=== PATIENT | female | born 2000 | race Caucasian/White ===

== ENCOUNTER 2023-05-15 05:22 | Emergency (ER) | payer MEDICAID, SELFPAY ==
[2023-05-15 05:24] VITALS: BP 131/86; PULSE 95; RESP 18; TEMP 36.8; O2SAT 98; BMI 24.7
[2023-05-15] MEDS: 0.9% Normal Saline 1,000 ML 999 ML IV (06:00)
[2023-05-15 06:02] LABS: Absolute Lymphocyte Count 2.36 X10^3/uL (0.83-4.51); Absolute Neutrophil Count 9.9 X10^3/uL (2.0-7.7); Basophil# 0.05 X10^3/uL; Basophil% 0.4 % (0-1); Eosinophil# 0.08 X10^3/uL; Eosinophils% 0.6 % (0-5); Hematocrit 37.4 % (37-47); Hemoglobin 12.7 g/dL (12.0-15.0); Lymphocyte # 2.36 X10^3/ul (0.83-4.51); Mean Corpuscular Hgb 31.1 pg (27.0-32.0); Mean Corpuscular Volume 91.7 fL (81-99); Mean Platelet Vol. 10.4 fl (6.2-12.0); Monocyte# 0.69 X10^3/uL; Monocyte% 5.3 % (0-10); NRBC Flagged by Analyzer 0 % (0-5); Neutrophil # 9.86 X10^3/uL (2.7-7.7); Neutrophil % 75.3 % (47-70); Platelet Count 251 K/mm3 (150-450); RBC Distribution Width CV 11.5 % (11.6-14.6); RBC Distribution Width SD 39.1 fl (35.1-43.9); Red Blood Count 4.08 M/mm3 (4.2-5.4); White Blood Count 13.1 K/mm3 (4.4-11.0)
--- NOTE | 2023-05-15 06:05 | EDS_ITS ---
HPI HPI - Female History of Present Illness Chief Complaint: Vag Bld, Preg Informant: patient and spouse/S.O. Narrative Narrative: Patient is a G1, P0 female who is approximately 8 to 11 weeks. On May 08 she had an ultrasound that showed a yolk sac but no heartbeat. Her beta hCG value at that time was 26,500. Her blood type is a positive. The patient states she was informed that her ultrasound is consistent with a spontaneous miscarriage. She states yesterday feeling with vaginal bleeding and developed crampy abdominal pain and back pain and passage of large clots. Patient states the pain got so bad at home that she cannot take it any longer and therefore comes to the hospital for evaluation. However upon reaching the ER she states her pain has spontaneously improved. She denies any history of bleeding disor kelly or blood thinner use and states that there is been no lightheadedness or syncopal event PFSH PFSH Medical History no medical history no medical history Home Medications ondansetron 4 mg disintegrating tablet 4 mg PO TID PRN nausea and vomiting #21 tabs 05/15/23 [Rx Last Taken Unknown] oxycodone-acetaminophen 5 mg-325 mg tablet (Percocet) 1 tab PO Q6H PRN pain 3 da ys #12 tabs 05/15/23 [Rx Last Taken Unknown] Allergy/AdvReac Type Severity Reaction Status Date / Time No Known Allergies Allergy Verified 05/15/23 05:31 Social History Smoking Status: Never smoker [facility] ED Constitutional Constitutional ED: Denies chills or fever(s) Eyes Eyes: Denies change in vision ENT ENT ED: Denies sore throat Cardiovascular Cardiovascular: Denies chest pain, palpitations or racing heartbeat Respiratory/Chest Respiratory/Chest: Denies cough or dyspnea Gastrointestinal Gastrointestinal: Reports abdominal pain and nausea; Denies diarrhea or vomiting Genitourinary Genitourinary ED: Reports other Details: Positive vaginal bleeding ; Denies dysuria Musculoskeletal Musculoskeletal: Reports other Details: Positive low back pain Integumentary Denies rash Neurologic Neurologic: Denies headache(s) Hematologic/Lymphatic Hematologic/Lymphatic: Denies easy bleeding or easy bruising EXAM Physical Exam Const Vital Signs: 05/15/23 05:24 Temperature 98.3 F Temperature Source Temporal Pulse Rate 95 Respiratory Rate 18 Blood Pressure 131/86 H Blood Pressure Mean 101 Pulse Ox 98 Oxygen Delivery Method Room Air Positive well nourished and well developed General Appearance ED: well developed; Negative for pallor HEENT HEENT Narrative: Cephalic atraumatic Eyes PERRL and EOMs intact bilaterally General Eye ED: Negative for pale conjunctiva Neck supple Resp normal respiratory effort and clear to auscultation bilaterally Cardio regular rate and regular rhythm Rate: other Other Details: Radial and carotid pulses are equal and symmetric GI normal to inspection, nondistended, normoactive bowel sounds, soft to palpation, non-tender and non-distended GI Narrative: No voluntary guarding or rigidity. No pulsatile mass or fluid wave Auscultation: normoactive bowel sounds Palpation: soft Narrative: External genitalia is normal. Speculum exam displays a clot within the vaginal vault. There is trace amount of bleeding around this. Blood is dark red in color consistent with old blood Extremity normal to inspection Neuro oriented x3, CN's II-XII intact bilaterally and no sensory deficits noted Sensorium / Orientation: alert Motor Exam: strength 5/5 throughout Psych mental status grossly normal Skin no rashes or lesions noted General Skin Exam: Negative for pallor MDM MDM MDM Narrative Medical decision making narrative: Patient presented to the ER with stable vitals but as differential diagnosis includes spontaneous miscarriage versus threatened versus acute blood loss anemia I did elect to perform basic laboratory studies. H&H is stable at 13 and 37. There is no need to repeat her blood type as records reviewed from the outside source confirm she is a positive. Her ultrasound was reviewed as well and I do not feel need to repeat one at this time as she has one scheduled for Thursday. Her quantitative hCG value dropped from 26,500 to approximately 10,500. With her vaginal bleeding and pain this is consistent with a spontaneous miscarriage. As the patient is not requiring a blood transfusion and she is not showing changes concerning for retained products of conception with infection she is otherwise safe for discharge. History & Record Review Discussion w/independent historian: Patient and Significant other Lab Data Attestation: I reviewed the patient's lab results. Labs: Laboratory Results - last 24 hr 05/15/23 05:40 WBC 13.1 H RBC 4.08 L Hgb 12.7 Hct 37.4 MCV 91.7 MCH 31.1 MCHC 34.0 RDW Std Deviation 39.1 RDW Coeff of Antione 11.5 L Plt Count 251 MPV 10.4 Immature Gran % (Auto) 0.400 Neut % (Auto) 75.3 H Lymph % (Auto) 18.0 L [place] % (Auto) 5.3 Eos % (Auto) 0.6 Baso % (Auto) 0.4 Absolute Neuts (auto) 9.9 H Absolute Lymphs (auto) 2.36 Nucleated RBC % 0 Sodium 138 Potassium 3.9 Chloride 107 Carbon Dioxide 25.0 Anion Gap 6 BUN 7 Creatinine 0.65 Estim Creat Clear Calc 114.21 Est GFR (MDRD) Af Amer 149 Est GFR (MDRD) Non-Af 123 BUN/Creatinine Ratio 10.8 Glucose 108 H Calcium 9.1 HCG, Quant 24404 H Discharge Plan Triage Chief Complaint: Vag Bld, Preg ED Provider: Augusto Wilson Dx/Rx/DC Orders Clinical Impression: Spontaneous miscarriage Instructions: ED Miscarriage Spontaneous Prescriptions: New oxycodone-acetaminophen [Percocet] 5-325 mg tablet 1 tab PO Q6H PRN (Reason: pain) 3 Days Qty: 12 0RF ondansetron 4 mg tablet,disintegrating 4 mg PO TID PRN (Reason: nausea and vomiting) Qty: 21 0RF Primary Care Provider: Eula Dillard Referrals: Eula Dillard MD [Primary Care Provider] - Activity Restrictions/Additional Instructions: Your marker has dropped from 26,500-10,500 indicating you are going through a spontaneous miscarriage. If your pain worsens please take the prescribed medication as directed. Please get your repeat ultrasound on Thursday to confirm there are no retained products of conception and return to the ER should you have any further concerns Disposition Disposition: Home, Self Care
[2023-05-15 06:17] LABS: Anion Gap 6 (5-15); BUN 7 mg/dL (7-18); BUN/Creat Ratio 10.8 RATIO (10-20); Calcium,Total 9.1 mg/dL (8.5-10.1); Chloride 107 mmol/L (98-107); Creatinine, Serum 0.65 mg/dL (0.55-1.02); EST Glomerular Filtration Rate 123 mL/min (>60); Est Glom Filt Rate - Afr Amer 149 mL/min (>60); Estimated Creatinine Clearance 114.21 ml/min; Glucose 108 mg/dL (74-106); Potassium 3.9 mmol/L (3.5-5.1); Sodium Level 138 mmol/L (136-145)
[2023-05-15 06:35] LABS: hCG Titer Quant., Serum 10478 mIU/mL (1-3)
[2023-05-15 06:45] VITALS: PULSE 80; RESP 18; O2SAT 99
== END 2023-05-15 06:46 | disposition home or self-care (01) ==
PROVIDERS: Emergency Provider Emergency Medicine; PCP Obstetrics & Gynecology; Visit Provider Emergency Medicine
DX: O03.9 Complete or unspecified spontaneous abortion without complication (principal)
CPT/HCPCS: 80048; 84702; 85025; 96360; 99282; J7030; A4216

== ENCOUNTER 2025-07-20 18:20 | Inpatient (IN) | payer MEDICAID, SELFPAY ==
[2025-07-20] VITALS (33 sets, daily range): BP systolic 98–133; BP diastolic 54–79; PULSE 79–117; RESP 16–18; TEMP 36.1–36.9; O2SAT 96–100; BMI 32.3
--- NOTE | 2025-07-20 06:54 | OB.TRI.NOTE ---
HPI - General General Date of Admission: 07/20/25 Date of Service: 07/20/25 Chief Complaint: contraction HPI Narrative NGUYEN QUINONES, is a 24 F who presents contractions every 2-4 minutes. No LOF. No bleeding. 0.5 -1 cm. Maternal Data Information Final KRYSTYNA: 07/22/25 Gestational age: 39+5 PFSH PFSH Home Medications ?Medication ?Instructions ?Recorded ?Last Taken ?Type aspirin 81 mg tablet,delayed 81 mg PO DAILY 07/20/25 07/19/25 History release (Adult Aspirin Regimen) vitamins no.102-iron 90 cap PO 07/20/25 07/19/25 History mg-folate 1 mg-dha 200 mg capsule Allergy/AdvReac Type Severity Reaction Status Date / Time No Known Allergies Allergy Verified 07/20/25 02:43 Social History Smoking Status: Never smoker History 1 Elective abortions Hx Para 0 Spontaneous abortions Hx # Term Pregnancies Ectopic pregnancies Hx # Pregnancies Multiple births # of living children NST FHR Rate Baby A Baseline: 135 Variability:: Moderate Accelerations:: 15 x 15 Decelerations:: None NST Reactive:: Yes Uterine Activity:: q 2-4 Assessment & Plan (1) Irregular contractions: (2) 39 weeks gestation of : PLAN: Plan r/o labor
[2025-07-20] MEDS: LACTATED RINGERS 500 ML 999 ML IV (14:05)
[2025-07-20] MEDS: 0.9% Saline Lock 10 ML Syringe IV ×2 (15:50→18:54)
[2025-07-20] MEDS: DiphenhydrAMINE 50 MG/ML Syringe 25 MG IV (15:50)
--- NOTE | 2025-07-20 18:27 | PCM.HP.OB ---
HPI - General General Date of Admission: 07/20/25 Chief Complaint: contraction HPI Narrative NGUYEN QUINONES, is a 24 F at 39.5 weeks gestation who presents with contractions. Patient has been to L&D on two separate occasions and discharged home. Patient seen and evaluated at bedside due to variable decelerations. Maternal Data Information KRYSTYNA Calculator Estimated Delivery Date Method Current WG Current Estimate 07/22/25 Manual 39w 5d PFSH PFS Medical History (Updated 07/20/25 @ 18:30 by Vee Bustamante CNM) History of blood transfusion Home Medications ?Medication ?Instructions ?Recorded ?Last Taken ?Type aspirin 81 mg tablet,delayed 81 mg PO DAILY 07/20/25 07/19/25 History release (Adult Aspirin Regimen) vitamins no.102-iron 90 cap PO 07/20/25 07/19/25 History mg-folate 1 mg-dha 200 mg capsule Allergy/AdvReac Type Severity Reaction Status Date / Time No Known Allergies Allergy Verified 07/20/25 13:20 Surgical History (Updated 07/20/25 @ 13:47 by Yamileth Villaseñor) History of gynecologic surgery Social History Smoking Status: Never smoker History 1 Elective abortions Hx Para 0 Spontaneous abortions Hx # Term Pregnancies Ectopic pregnancies Hx # Pregnancies Multiple births # of living children NST FHR Rate Baby A Baseline: 140 Variability:: Moderate Accelerations:: 15 x 15 Decelerations:: Variable NST Reactive:: Yes FHR Category:: Category I Uterine Activity:: TOCO reading every 2-3 minutes ROS Eyes Eyes: Denies blurry vision, change in vision or spots in vision ENT HEENT: Denies dizziness or headache(s) Cardiovascular Cardiovascular: Denies abdominal pain, chest pain or dyspnea Respiratory/Chest Respiratory/Chest: Denies cough, dyspnea, shortness of breath at rest or shortness of breath with exertion Gastrointestinal Gastrointestinal: Denies abdominal pain, diarrhea or vomiting Genitourinary Genitourinary: Denies change in urinary stream, difficulty urinating or dysuria Musculoskeletal Musculoskeletal: Reports none Integumentary Integumentary: Denies rash Neurologic Neurologic: Denies dizziness, headache(s), memory loss or weakness Psychiatric Psychiatric: Reports none Vital Signs Vital Signs Vital Signs: 07/20/25 02:35 07/20/25 02:35 07/20/25 02:35 Temperature Temperature Source Temporal Pulse Rate 105 H Respiratory Rate Blood Pressure 133/79 H BP Systolic 133 BP Diastolic 79 Pulse Ox 07/20/25 02:35 07/20/25 02:35 07/20/25 02:35 Temperature 98.5 F Temperature Source Pulse Rate Respiratory Rate 16 Blood Pressure BP Systolic BP Diastolic Pulse Ox 96 07/20/25 04:32 07/20/25 04:32 07/20/25 04:32 Temperature Temperature Source Temporal Pulse Rate 83 Respiratory Rate Blood Pressure 131/74 H BP Systolic 131 BP Diastolic 74 Pulse Ox 07/20/25 04:32 07/20/25 04:32 07/20/25 04:32 Temperature 98.1 F Temperature Source Pulse Rate 92 Respiratory Rate 18 Blood Pressure BP Systolic BP Diastolic Pulse Ox 07/20/25 04:32 07/20/25 13:20 07/20/25 13:20 Temperature Temperature Source Pulse Rate 97 Respiratory Rate Blood Pressure 130/72 H BP Systolic 130 BP Diastolic 72 Pulse Ox 97 07/20/25 13:20 07/20/25 13:20 07/20/25 13:20 Temperature Temperature Source Temporal Pulse Rate Respiratory Rate 16 Blood Pressure BP Systolic BP Diastolic Pulse Ox 96 07/20/25 13:20 07/20/25 13:21 07/20/25 13:21 Temperature 97.0 F L Temperature Source Pulse Rate 100 Respiratory Rate Blood Pressure BP Systolic BP Diastolic Pulse Ox 96 Weight Weight: 188 lb 9.6 oz Body Mass Index (BMI) 32.3 Physical Exam Const alert, oriented x3 and no apparent distress General Appearance: cooperative Orientation / Consciousness: awake Exam Limitations: no limitations HEENT normocephalic Head and Scalp: normal to inspection Eyes General Eye: normal appearance of both eyes Neck full ROM and no lymphadenopathy Lymph Lymphatic: no lymphadenopathy noted Chest inspection of chest normal Resp normal respiratory effort, normal air movement and clear to auscultation bilaterally Effort and Inspection: able to speak in complete sentences and symmetric chest movement Cardio regular rate and regular rhythm GI normal to inspection, nondistended, normoactive bowel sounds Manual OB Exam: presentation cephalic Back/Spine normal ROM Extremity full ROM and no calf tenderness Skin no rashes or lesions noted General Skin Exam: no breakdown Neuro oriented x3 and CN's II-XII intact bilaterally Psych mental status grossly normal and thought process normal Labs Labs Labs: Hct, (37-47) 37.4 % Hgb, (12.0-15.0) 12.7 g/dL Assessment & Plan (1) 39 weeks gestation of : (2) Irregular contractions: (3) Variable deceleration: PLAN: Plan CE / Admit to labor and delivery for labor Patient requesting epidural at this time GBS negative Routine labs Dr. Harris notified of admission and is collaborating physician
[2025-07-20 18:46] LABS: Hematocrit 35.2 % (37-47); Hemoglobin 12.0 g/dL (12.0-15.0); Immature Granulocytes Count 0.070 X10^3/uL (0.0-0.0); Mean Corp Hgb Conc 34.1 g/dL (32-36); Mean Corpuscular Volume 92.1 fL (81-99); Mean Platelet Vol. 12.1 fl (6.2-12.0); NRBC Flagged by Analyzer 0 % (0-5); Platelet Count 196 K/mm3 (150-450); RBC Distribution Width CV 14.7 % (11.6-14.6); RBC Distribution Width SD 48.4 fl (35.1-43.9); Red Blood Count 3.82 M/mm3 (4.2-5.4); White Blood Count 15.8 K/mm3 (4.4-11.0)
[2025-07-20] MEDS: Lactated Ringers 1,000 ML 999 ML IV (18:55)
[2025-07-20 19:57] LABS: Syphilis Antibodies Nonreactive (Nonreactive)
[2025-07-20] MEDS: fentaNYL-bupivacaine (epidural) 100 ML BAG EPIDURAL ×2 (20:00→23:52)
[2025-07-20] MEDS: Oxytocin 15 Units/NS 250ml 15 UNITS/250 ML IV.SOLN 2 UNITS IV (21:03)
[2025-07-20] MEDS: Lactated Ringers 1,000 ML 200 ML IV (21:50)
[2025-07-21] VITALS (128 sets, daily range): BP systolic 75–184; BP diastolic 38–139; PULSE 83–173; RESP 14–20; TEMP 36.3–38.6; O2SAT 96–100
[2025-07-21] MEDS: LACTATED RINGERS 500 ML 999 ML IV (02:05)
[2025-07-21] MEDS: Lactated Ringers 1,000 ML 200 ML IV ×2 (02:51→07:50)
[2025-07-21] MEDS: fentaNYL-bupivacaine (epidural) 100 ML BAG EPIDURAL (04:26)
--- NOTE | 2025-07-21 06:52 | PCM.PN.CNM ---
Subjective Subjective Patient sleeping. Comfortable with epidural. Objective Data Objective Data Vital Signs: Vital Signs Temp Pulse Resp BP Pulse Ox 97.8 F 85 16 102/59 L 98 07/21/25 06:04 07/21/25 06:05 07/21/25 06:04 07/21/25 06:04 07/21/25 06:05 Weight: 188 lb 9.6 oz Body Mass Index (BMI) 32.3 Intake & Output: Intake and Output for Last 24 Hours 07/19/25 07/20/25 07/21/25 23:59 23:59 23:59 Intake Total 1357.04 / 1357.04 1507.2 / 1507.2 Balance 1357.04 / 1357.04 1507.2 / 1507.2 Lab / Micro Data 07/20/25 18:30 Labs: Laboratory Results - last 24 hr 07/20/25 18:30: WBC 15.8 H, RBC 3.82 L, Hgb 12.0, Hct 35.2 L, MCV 92.1, MCH 31.4, MCHC 34.1, RDW Std Deviation 48.4 H, RDW Coeff of Antione 14.7 H, Plt Count 196, MPV 12.1 H, Immature Gran % (Auto) 0.400, Neut % (Auto) 79.3 H, Lymph % (Auto) 13.5 L, [place] % (Auto) 6.3, Eos % (Auto) 0.2, Baso % (Auto) 0.3, Absolute Neuts (auto) 12.6 H, Absolute Lymphs (auto) 2.13, Nucleated RBC % 0, Syphilis Total Ab Nonreactive, Blood Type A POSITIVE, Antibody Screen NEGATIVE Assessment & Plan (1) 39 weeks gestation of : (2) Variable deceleration: PLAN: Plan CE SROM for clear fluid Pitocin at 8 mu/min- continue to increase per orders Anticipate
[2025-07-21] MEDS: Lactated Ringers 500 ML IV (09:19)
--- NOTE | 2025-07-21 10:09 | EX.PCM.OBVAG ---
Assessment & Plan (1) (spontaneous vaginal delivery): (2) Cervical laceration: QUALIFIERS: Encounter type: initial encounter Qualified Code(s): S37.63XA - Laceration of uterus, initial encounter (3) Anemia, blood loss: COMMENT: cervical laceration at time of delivery Maternal Data Information KRYSTYNA Calculator Estimated Delivery Date Method Current WG Current Estimate 07/22/25 Manual 39w 6d Final KRYSTYNA: 07/22/25 Gestational age: 39+6 Vaginal Delivery Maternal Presentation Maternal Presentation: Elective Induction Type of Induction: Pitocin Vaginal Delivery Information Procedure Performed: Spontaneous Vaginal Delivery Surgeon/Practitioner: Miriam Celis Date of Procedure: 07/21/25 Pre-Procedure Diagnosis: Term Post-Procedure Diagnosis: , cervical laceration Type of anesthesia: Epidural Estimated Blood Loss: >400cc Time of Delivery: 08:43 Findings Description of procedure: Patient admitted pitocin induction. Progressed slowly from 3-7 cm and than rapidly progressed from 7/80/0 to complete and +4. Epidural was very dense and patient could not feel to push. Epidural level turned down. Patient pushed for 45 minutes and delivered over an intact perineum. The anterior and posterior shoulders delivered spontaneously. The was placed on the maternal abdomen. The cord was clamped and cut after one minute. The placenta delivered with gentle traction. A second degree perineal laceration was present. An irregular piece of tissue was noted to be extending from the upper vagina to the introitus. This was bleeding mildly. Upon inspection of the source it was discovered that this tissue was the cervix evulsed from the lower uterine segment approximated 75% around the circumference. Uterine bleeding was mild but a constant trickle continued from the cervical tissue. A lap was placed for pressure and the patient was moved to the OR for repair. Please see that report for further details. Procedure findings: Cervical evulsion Presentation: Vertex and ISIS Amniotic Membrane Rupture Type: Spontaneous Amniotic Fluid Description: Clear Placental Delivery Description: Spontaneous Placenta Disposition: [facility] Specimen collected: No Cord Vessel Description: 3 Vessels Cord Entanglement: None Infant A Gender: Male (1 minute): 8 (5 minute): 9 Delayed Cord Clamping: Yes Attendant Self Service Store pig caster: No Post Vaginal Deli Medications given after delivery: IV Pitocin Episiotomy Description: None Laceration: Midline, Cervical Extension/lac (see op report) and 2nd degree Complication Complications: Yes Complication Details: cervical laceration
[2025-07-21 10:55] LABS: Differential Indicated SCAN CRITERIA MET; Hematocrit 23.9 % (37-47); Hemoglobin 8.2 g/dL (12.0-15.0); Immature Granulocytes Count 0.170 X10^3/uL (0.0-0.0); Mean Corp Hgb Conc 34.3 g/dL (32-36); Mean Corpuscular Volume 91.9 fL (81-99); Mean Platelet Vol. 10.7 fl (6.2-12.0); NRBC Flagged by Analyzer 0 % (0-5); POSITIVE DIFFERENTIAL YES; Platelet Count 160 K/mm3 (150-450); RBC Distribution Width CV 14.7 % (11.6-14.6); RBC Distribution Width SD 48.8 fl (35.1-43.9); Red Blood Count 2.60 M/mm3 (4.2-5.4); White Blood Count 20.7 K/mm3 (4.4-11.0)
[2025-07-21] MEDS: Lactated Ringers 1,000 ML 999 ML IV (10:55)
[2025-07-21 11:11] LABS: Differential Comment SCANNED
[2025-07-21] MEDS: Cefazolin 2 GM in 0.9% Normal Saline (100mL Bag) 100 ML IV (11:14)
[2025-07-21] MEDS: Oxytocin 15 Units/NS 250ml 15 UNITS/250 ML IV.SOLN 83 UNITS IV (11:51)
[2025-07-21] MEDS: 0.9% Normal Saline (500mL Bag) 500 ML 50 ML IV (12:45)
--- NOTE | 2025-07-21 14:56 | NURSING ---
Pt bleeding stable. Pitocin was stopped when blood transfusion was started. Pt had a total of 2 bags of pitocin after delivery due to one being given in the OR during cervical repair. Wasted some of PP bag due to bleeding stable.
[2025-07-21] MEDS: Senna/Docusate Sodium 1 Tablet PO (15:50)
[2025-07-21] MEDS: 0.9% Saline Lock 10 ML Syringe IV (16:00)
[2025-07-21] MEDS: GLYCERIN/WITCH HAZEL (TUCKS) MED..PAD 1 EACH TOPICAL (17:22)
[2025-07-21] MEDS: Benzocaine/Lanolin/Aloe Vera 85 GM Spray 1 SPRAY TOPICAL (17:22)
[2025-07-21] MEDS: SELF ADMINISTRATION OF MEDS 1 EACH NOTE (17:23)
[2025-07-21 19:18] LABS: Hematocrit 25.6 % (37-47); Hemoglobin 8.7 g/dL (12.0-15.0); Immature Granulocytes Count 0.370 X10^3/uL (0.0-0.0); Mean Corp Hgb Conc 34.0 g/dL (32-36); Mean Corpuscular Volume 90.1 fL (81-99); NRBC Flagged by Analyzer 0 % (0-5); POSITIVE DIFFERENTIAL YES; RBC Distribution Width CV 14.8 % (11.6-14.6); RBC Distribution Width SD 48.8 fl (35.1-43.9); Red Blood Count 2.84 M/mm3 (4.2-5.4); White Blood Count 26.8 K/mm3 (4.4-11.0)
[2025-07-21 19:27] LABS: Differential Indicated SCAN CRITERIA MET
[2025-07-21 20:09] LABS: Differential Comment SCANNED
--- NOTE | 2025-07-21 21:39 | EX.PCM.OBRPT ---
Assessment & Plan (1) Cervical laceration: QUALIFIERS: Encounter type: initial encounter Qualified Code(s): S37.63XA - Laceration of uterus, initial encounter Maternal Data Information KRYSTYNA Calculator Estimated Delivery Date Method Current WG Current Estimate 07/22/25 Manual 39w 6d Operative Report (OB) Procedure Details Date of Procedure: 07/21/25 Procedure Start Time: 09:19 Procedure Stop Time: 10:10 Pre-Operative Diagnosis: Other (cervical laceration ) Other Pre-Operative diagnosis: second degree perineal laceration Post-Operative Diagnosis: Same as Pre-operative diagnosis Type of Anesthesia: Epidural Antibiotic Given: Ancef 2 grams IV x1 Drain: Other (none) Estimated Blood Loss: 200 Findings Description of surgery: Patient was taken to the OR were her epidural was redosed. She was placed in stirrups. A weight speculum was placed in the vagina and a defer retractor used to inspected the cervix. An Allis was used to to grasped the edge of the cervix. The cervix was followed around the circumference and found to evulsed from the uterus nearly all the way around. A slow trickle of blood came from the edges. An 0 Vicryl suture was was placed at 12o'clock and the cervix was over sewn around the circumference. The tissue was very fragile. A portion of nonviable tissue was excised with Mathis scissors. Hemostasis was achieved. The perineal laceration was repaired with 2-0 Vicryl. All sponge, lap, needle and instrument counts were correct. The laceration was reviewed with the patient and her . Her cervix is unlikely to be normal in the future and given the spontaneous unexpected injury to her cervix a primary for her next would be encouraged. Surgical findings: Cervix evulsed from uterus from 10 o'clock clock hurd to 7 o'clock Second degree laceration Specimen collected: No Diamond Sorter sociology research assistant: No Complications Complications: No
[2025-07-22] VITALS (9 sets, daily range): BP systolic 105–123; BP diastolic 55–65; PULSE 90–103; RESP 16; TEMP 36.3–36.7; O2SAT 97–99
--- NOTE | 2025-07-22 08:55 | PCM.PN.OB ---
Subjective Subjective Doing well. Ambulating and voiding without difficulty. Mild lochia. Has slowed down a great deal. Breast feeding. s/p 1 unit PRBC Objective Data Objective Data Vital Signs: Vital Signs Temp Pulse Resp BP Pulse Ox O2 Del Method 97.4 F L 90 16 105/58 L 97 Room Air 07/22/25 04:05 07/22/25 04:06 07/22/25 04:05 07/22/25 04:06 07/22/25 04:05 07/22/25 04:05 Oxygen Delivery Method Room Air Weight: 85.548 kg Body Mass Index (BMI) 32.3 Intake & Output: Intake and Output for Last 24 Hours 07/20/25 07/21/25 07/22/25 23:59 23:59 23:59 Intake Total 1357.04 / 1357.04 5006.83 / 5006.83 Output Total 600 / 600 450 / 450 Balance 1357.04 / 1357.04 4406.83 / 4406.83 -450 / -450 Lab / Micro Data 07/21/25 19:10 Labs: Laboratory Results - last 24 hr 07/20/25 18:30: Crossmatch See Detail 07/21/25 10:49: WBC 20.7 H, RBC 2.60 L, Hgb 8.2 L, Hct 23.9 L, MCV 91.9, MCH 31.5, MCHC 34.3, RDW Std Deviation 48.8 H, RDW Coeff of Antione 14.7 H, Plt Count 160, MPV 10.7, Immature Gran % (Auto) 0.800, Neut % (Auto) 85.9 H, Lymph % (Auto) 5.5 L, [place] % (Auto) 7.6, Eos % (Auto) 0.0, Baso % (Auto) 0.2, Absolute Neuts (auto) 17.8 H, Absolute Lymphs (auto) 1.14, Nucleated RBC % 0, Differential Comment SCANNED 07/21/25 19:10: WBC 26.8 H, RBC 2.84 L, Hgb 8.7 L, Hct 25.6 L, MCV 90.1, MCH 30.6, MCHC 34.0, RDW Std Deviation 48.8 H, RDW Coeff of Antione 14.8 H, Plt Count TNP, MPV TNP, Immature Gran % (Auto) 1.400 H, Neut % (Auto) 82.8 H, Lymph % (Auto) 8.8 L, [place] % (Auto) 6.7, Eos % (Auto) 0.0, Baso % (Auto) 0.3, Absolute Neuts (auto) 22.2 H, Absolute Lymphs (auto) 2.35, Nucleated RBC % 0, Differential Comment SCANNED, Platelet Estimate ADEQUATE ROS Constitutional Constitutional: Denies headache(s) Cardiovascular Cardiovascular: Denies chest pain or dyspnea Gastrointestinal Gastrointestinal: Denies nausea or vomiting Genitourinary Genitourinary: Denies dysuria Physical Exam Const alert and no apparent distress General Appearance: cooperative and comfortable Eyes PERRL and EOMs intact bilaterally Resp normal respiratory effort GI soft to palpation and non-tender Narrative: Fundus firm, below umbilicus. Uterus Palpation: uterus fundus firm ( below umbilicus) Extremity normal to inspection and full ROM Neuro oriented x3 and CN's II-XII intact bilaterally Psych mental status grossly normal Assessment & Plan (1) Cervical laceration: QUALIFIERS: Encounter type: initial encounter Qualified Code(s): S37.63XA - Laceration of uterus, initial encounter (2) (spontaneous vaginal delivery): (3) Anemia, blood loss: COMMENT: cervical laceration at time of delivery PLAN: s/p 1 unit PRBC PLAN: Plan Routine PP care
[2025-07-22] MEDS: Senna/Docusate Sodium 1 Tablet PO (10:16)
[2025-07-22] MEDS: SELF ADMINISTRATION OF MEDS 1 EACH NOTE ×2 (10:17→22:08)
[2025-07-23 01:28] VITALS: BP 116/60; PULSE 99
[2025-07-23 01:35] VITALS: BP 116/60; PULSE 99; RESP 16; TEMP 36.4; O2SAT 97
[2025-07-23] MEDS: 0.9% Saline Lock 10 ML Syringe IV (04:58)
[2025-07-23 08:17] VITALS: BP 117/60; PULSE 86
--- NOTE | 2025-07-23 08:19 | PCM.PN.OB ---
Subjective Subjective Doing well. Ambulating and voiding without difficulty. Mild lochia. Breast feeding. Objective Data Objective Data Vital Signs: Vital Signs Temp Pulse Resp BP Pulse Ox O2 Del Method 97.6 F L 86 16 117/60 97 Room Air 07/23/25 01:35 07/23/25 08:17 07/23/25 01:35 07/23/25 08:17 07/23/25 01:35 07/23/25 01:35 Oxygen Delivery Method Room Air Weight: 85.548 kg Body Mass Index (BMI) 32.3 Intake & Output: Intake and Output for Last 24 Hours 07/21/25 07/22/25 07/23/25 23:59 23:59 23:59 Intake Total 5006.83 / 5006.83 Output Total 600 / 600 450 / 450 Balance 4406.83 / 4406.83 -450 / -450 Lab / Micro Data 07/21/25 19:10 ROS Constitutional Constitutional: Denies headache(s) Cardiovascular Cardiovascular: Denies chest pain or dyspnea Gastrointestinal Gastrointestinal: Denies nausea or vomiting Genitourinary Genitourinary: Denies dysuria Physical Exam Const alert, oriented x3 and no apparent distress General Appearance: cooperative and comfortable Eyes PERRL and EOMs intact bilaterally Resp normal respiratory effort GI soft to palpation and non-tender Uterus Palpation: uterus fundus firm ( below umbilicus) Extremity normal to inspection and full ROM Neuro oriented x3 and CN's II-XII intact bilaterally Psych mental status grossly normal Assessment & Plan (1) Anemia, blood loss: COMMENT: cervical laceration at time of delivery (2) Cervical laceration: QUALIFIERS: Encounter type: initial encounter Qualified Code(s): S37.63XA - Laceration of uterus, initial encounter (3) (spontaneous vaginal delivery): PLAN: Plan Discharge home
--- NOTE | 2025-07-23 08:20 | PCM.DC.SUM ---
Providers Date of Admission: 07/20/25 Date of Discharge: 07/23/25 Primary Care Physician: Ada Primary Care Phys Reason For Visit: VAGINAL DELIVERY Diagnosis Discharge Diagnosis (1) Anemia, blood loss: Status: Acute Code(s): D50.0 - Iron deficiency anemia secondary to blood loss (chronic) (2) Cervical laceration: Status: Acute Code(s): S37.63XA - Laceration of uterus, initial encounter Qualifiers: Encounter type: initial encounter Qualified Code(s): S37.63XA - Laceration of uterus, initial encounter (3) (spontaneous vaginal delivery): Status: Acute Code(s): O80 - Encounter for full-term uncomplicated delivery Plan Discharge home Medications at Discharge Home Medications aspirin 81 mg tablet,delayed release (Adult Aspirin Regimen) 81 mg PO DAILY 07/20/25 vitamins no.102-iron 90 mg-folate 1 mg-dha 200 mg capsule cap PO 07/20/25 Hospital Course Operations None Procedures - (cervical repair) Summary of Care Provided Minutes Spent on Discharge: 20 Hospital Course: Admitted for augmentation. . Cervical injury with delivery. Repaired in OR. Blood loss anemia. Received 1 unit PRBC Physical Exam Const alert and no apparent distress Narrative: Fundus firm, below umbilicus. Weight / BMI Weight Weight: 85.548 kg Body Mass Index (BMI) 32.3 ABG / Lab / Microbiology Data 07/21/25 19:10 D/C Instructions May resume sexual activity in: 6 weeks DC O2, CPAP, BIPAP Needs Home O2 Discharge instructions: No Please Follow Up With: Eula Dillard MD When: Follow up with our office in 1-2 and 6 weeks or as needed. [phone] Meaningful Use Info Meaningful Use Meaningful Use Diagnoses (Choose all that apply): None applicable Discharge Plan Admission Admit Date/Time: 07/20/25 18:20 Primary Reason for Your Visit: labor Attending Provider: Miriam Celis Primary Care Provider: Care Physician,No Primary Instructions Patient Instructions: After a Vaginal Delivery (WP) Discharge Orders/Prescriptions Prescriptions: No Action aspirin [Adult Aspirin Regimen] 81 mg tablet,delayed release (DR/EC) 81 mg PO DAILY PNV 056-[id number]-[id number] 90 mg iron- 1 mg-200 mg capsule PO Referrals / Follow Up: Care Physician,No Primary [Primary Care Provider, Medical] Disposition Disposition (needs filled in before D/C Order can be placed): Home, Self Care
[2025-07-23 08:24] VITALS: BP 117/60; PULSE 86; RESP 16; TEMP 36.2; O2SAT 98
--- NOTE | 2025-07-28 16:22 | NURSING ---
07/28/2025- called spoke with mahendra, regarding follow up phone call, states going well bleeding slowing down, feeding going well, mallikae was in to ped today and back to weight. Pt comfortable with discharge instructions and when to return.
== END 2025-07-23 10:00 | disposition home or self-care (01) | DRG 542 ==
LOC: WPOUT 18:24 → WP 18:25
PROVIDERS: Advanced Practice Midwife; Admitting Provider Obstetrics & Gynecology; Referring Provider Obstetrics & Gynecology; Visit Provider Obstetrics & Gynecology
DX: O76 Abnormality in fetal heart rate and rhythm complicating labor and delivery (principal); Z37.0 Single live birth; O71.3 Obstetric laceration of cervix; D50.0 Iron deficiency anemia secondary to blood loss (chronic); O99.02 Anemia complicating childbirth; Z79.82 Long term (current) use of aspirin; O47.1 False labor at or after 37 completed weeks of gestation; O70.1 Second degree perineal laceration during delivery; Z3A.39 39 weeks gestation of pregnancy; N96 Recurrent pregnancy loss; O99.893 Other specified diseases and conditions complicating puerperium
CPT/HCPCS: 59025; 59050; 85025; 86780; 86850; 86900; 86901; 99221; P9016; A4216; G0378